=== PATIENT | male | born 1965 ===

== ENCOUNTER 2020-10-12 18:37 | Emergency (ER) | payer MEDICARE ==
[~2020-10-12] VITALS: Ht 172.7 cm; Wt 80.0 kg
--- NOTE | 2020-10-12 19:03 | NUR ---
PATIENT COCO MALIK WITH CHIEF C/O "I WANT TO DETOX." PER EMS PATIENT WOULD LIKE A REFERRAL TO A DETOX PROGRAM. PATIENT REPORTS TO DRINKING "4 BEERS AND 4 SHOTS OF TEQUILA PER DAY." LAST DRINK WAS AT 1815 PER PATIENT. PATIENT AMUBLATED TO BATHROOM WITH STEADY GAIT, NADN, VSS, CALL LIGHT WITHIN REACH.
[2020-10-12] MEDS ORDERED: MAALOX/HYOSCYAMINE/LIDOCAINE 45 ML BTL ONE (19:33)
[2020-10-12] MEDS ORDERED: ONDANSETRON ODT 4 MG ONE (19:33)
[2020-10-12 19:56] VITALS: BP 105/73
--- NOTE | 2020-10-12 19:57 | NUR ---
PATIENT RESTING IN GURNEY, EYES CLOSED, PATIENT SNORING LOUDLY, NADN, CALL LIGHT WITHIN REACH.
--- NOTE | 2020-10-12 20:38 | NUR ---
Patient given discharge instructions referral for drug/alcohol rehab and they have confirmed that they understand the instructions. Patient provided taxi voucher. Patient stable and ambulatory with steady gait from ED to taxi.
== END 2020-10-12 20:39 | disposition home or self-care (01) ==
LOC: ED 20:00
DX: F10.229 Alcohol dependence with intoxication, unspecified (principal); F17.210 Nicotine dependence, cigarettes, uncomplicated; Z72.9 Problem related to lifestyle, unspecified; Y90.0 Blood alcohol level of less than 20 mg/100 ml
CPT/HCPCS: 99283; 99406